=== PATIENT | male | born 1970 | race Caucasian/White ===

== ENCOUNTER 2021-06-25 02:19 | Day surgery (SDC) | payer OTHER, SELFPAY ==
[2021-06-08 12:41] VITALS: BMI 38.8
[2021-06-25 06:50] VITALS: BP 122/79; PULSE 57; RESP 18; TEMP 36.1; O2SAT 98; BMI 38.7
[2021-06-25] MEDS: LACTATED RINGERS 1,000 ML 150 ML IV CONT (06:53)
--- NOTE | 2021-06-25 07:21 | PM.HPGS ---
History of Present Illness History of Present Illness Consent: Risks, benefits, and alternatives have been discussed and questions answered. Patient agrees to proceed with procedure. Chief complaint: neoplasm screening Narrative: Easton Matamoros is a 50 year old male referred for colon cancer screening Review of Systems Review of Systems: All systems reviewed & are unremarkable except as noted in HPI and below PMFSH Past Medical History Medical History GERD (gastroesophageal reflux disease) Pulse irregularity Family History Family History Father Lung cancer Diabetes mellitus Cerebrovascular accident Mother Heart disease Diabetes mellitus Social History Social History Years smoked: 2 Smoking status: Never smoker Tobacco type: cigarettes Second hand tobacco smoke exposure: No Alcohol intake: current Drinks per week: 2 Substance use: never Substance use type: does not use Living arrangements: with family Gender identity (if verbalized by the patient): Male Sexual Orientation (if Verbalized by the Patient): Straight or Heterosexual Spiritual care concerns: No Meds Home Medications and Allergies Home Medications Medication Instructions Recorded Confirmed Type aspirin 81 mg tablet,delayed 81 mg PO DAILY 05/06/21 06/25/21 History release magnesium oxide 400 mg PO DAILY 05/06/21 06/25/21 History metoprolol succinate 50 mg 50 mg PO DAILY 05/06/21 06/25/21 History tablet,extended release 24 hr multivit with minerals-folic 1 tablet PO DAILY 05/06/21 06/25/21 History acid-lycopene 0.4 mg-600 mcg tablet omega-3 fatty acids 1,000 mg 1,000 mg PO DAILY 05/06/21 06/25/21 History capsule Allergies Allergy/AdvReac Type Severity Reaction Status Date / Time No Known Allergies Allergy Verified 06/25/21 06:49 Vital Signs Vital Signs - 24 hr 06/25/21 06:50 Temperature 36.1 C L Pulse Rate 57 L Respiratory Rate 18 Blood Pressure 122/79 Pulse Oximetry 98 Exam Resp: Auscultation: clear to auscultation bilaterally Cardio: Rate: regular rate Rhythm: regular rhythm GI: GI Palp: Yes Soft to palpation and No Tenderness to palpation present (GI) Assessment and Plan Assessment and plan (1) Colon cancer screening: Code(s): Z12.11 - Encounter for screening for malignant neoplasm of colon Status: Acute Assessment and Plan: Colonoscopy with possible biopsy or polypectomy or cautery or injection of substances.
--- NOTE | 2021-06-25 07:38 | WPDANESEPPF ---
Anes - Initial Pre Proc Eval Procedure: Operation Date: 06/25/21 08:00 Proposed Procedures p Screening Colonoscopy - Tigre Herrera MD Date/Time: 06/25/21 07:38 Surgeon: Tigre Herrera MD Pre Op Diagnosis: neoplasm screening Patient Data Age: 50 Gender: M Height: 1.78 m Weight: 122.5 kg Last Vital Signs Temp 36.1 C L 06/25/21 06:50 Pulse 57 L 06/25/21 06:50 Resp 18 06/25/21 06:50 BP 122/79 06/25/21 06:50 Pulse Ox 98 06/25/21 06:50 Allergies Allergy/AdvReac Type Severity Reaction Status Date / Time No Known Allergies Allergy Verified 06/25/21 06:49 Home Medications Medication Instructions Recorded Confirmed Type aspirin 81 mg tablet,delayed 81 mg PO DAILY 05/06/21 06/25/21 History release magnesium oxide 400 mg PO DAILY 05/06/21 06/25/21 History metoprolol succinate 50 mg 50 mg PO DAILY 05/06/21 06/25/21 History tablet,extended release 24 hr multivit with minerals-folic 1 tablet PO DAILY 05/06/21 06/25/21 History acid-lycopene 0.4 mg-600 mcg tablet omega-3 fatty acids 1,000 mg 1,000 mg PO DAILY 05/06/21 06/25/21 History capsule Patient hx anesthesia problems: none Family hx anesthesia problems: none Results Review: All pre-operative results and documents have been reviewed as part of the pre-operative evaluation. [facility] Past Medical History Medical History (Updated 06/25/21 @ 07:39 by Rocky Edwards MD) GERD (gastroesophageal reflux disease) Obesity EMERITA (obstructive sleep apnea) Pulse irregularity Family History Family History Father Lung cancer Diabetes mellitus Cerebrovascular accident Mother Heart disease Diabetes mellitus Social History Social History Years smoked: 2 Smoking status: Never smoker Tobacco type: cigarettes Second hand tobacco smoke exposure: No Alcohol intake: current Drinks per week: 2 Substance use: never Substance use type: does not use Living arrangements: with family Gender identity (if verbalized by the patient): Male Sexual Orientation (if Verbalized by the Patient): Straight or Heterosexual Spiritual care concerns: No Anes - Eval Final PreProcedure Day of Procedure 06/25/21 07:38 Patient weight: obese Heart: regular rate and rhythm Lungs: clear to auscultation Airway: Mallampati scale class II Neurological: alert and oriented Last oral intake: >/= 8 hours ASA classification: III Emergent: no Anesthetic plan: proceed Anesthesia type and monitoring: general GIVS and standard monitoring Results Review: All pre-operative results and documents have been reviewed as part of the pre-operative evaluation. Informed Consent: The patient's anesthetic plan and its attendant risks and benefits were discussed with the patient/family/POA. Questions were solicited and answers provided to the satisfaction of the patient/family/POA.
[2021-06-25 08:14] VITALS: BP 94/59; PULSE 68; RESP 24; O2SAT 95
[2021-06-25 08:24] VITALS: BP 114/84; PULSE 65; RESP 21; O2SAT 96
[2021-06-25 08:34] VITALS: BP 123/84; PULSE 72; RESP 24; O2SAT 98
== END 2021-06-25 08:43 | disposition home or self-care (01) ==
PROVIDERS: PCP Family Medicine; Visit Provider Internal Medicine Gastroenterology
PROC: 0DJD8ZZ Inspection of Lower Intestinal Tract, Via Natural or Artificial Opening Endoscopic (ICD-10-PCS; CPT 45378; principal; 2021-06-25 08:00)
DX: Z12.11 Encounter for screening for malignant neoplasm of colon (principal); K21.9 Gastro-esophageal reflux disease without esophagitis; G47.33 Obstructive sleep apnea (adult) (pediatric); E66.9 Obesity, unspecified; Z68.38 Body mass index [BMI] 38.0-38.9, adult; Z79.82 Long term (current) use of aspirin
CPT/HCPCS: 45378; J2704; J7120

== ENCOUNTER → 2023-02-11 10:24 | Outpatient (CLI) | payer OTHER, SELFPAY ==
--- NOTE | ~2023-02-11 | XR_ITS ---
XR shoulder LT min 2V DATE: 02/11/2023 10:51 INDICATION: Left shoulder pain radiating to biceps muscle for 4 to 5 months TECHNIQUE: 4 views COMPARISON: None FINDINGS: No fracture or dislocation, periosteal reaction or bone destruction or abnormal soft tissue calcification. IMPRESSION: Negative Reviewed, dictated and finalized at location [] IMPRESSION: Negative
== END ==
PROVIDERS: PCP Family Medicine; Visit Provider Family Medicine
DX: M25.512 Pain in left shoulder (principal)
CPT/HCPCS: 73030

== ENCOUNTER 2023-12-26 14:57 | Emergency (ER) | payer OTHER, SELFPAY ==
[2023-12-26 15:11] VITALS: BP 149/75; PULSE 57; RESP 16; TEMP 36.6; O2SAT 100
--- NOTE | 2023-12-26 15:36 | ED.MALEGU ---
HPI - Male Genitourinary General Chief complaint: Urogenital-Male Stated complaint: Large Testicle Time Seen by Provider: 12/26/23 15:36 Source: patient, RN notes reviewed and old records reviewed Mode of arrival: ambulatory Limitations: no limitations History of Present Illness HPI Narrative: 53-year-old male presents to the [facility] with right in large to and uncomfortable right testicle. Noticed it over the weekend. States that he tried calling his primary care provider was referred to the emergency room or urgent care. Reports that he is not sure how long it has been enlarged. Denies fevers Denies chances of STDs Related Data Home Medications Medication Instructions Recorded Confirmed aspirin 81 mg tablet,delayed 81 mg PO DAILY 05/06/21 12/26/23 release magnesium oxide 400 mg PO DAILY 05/06/21 12/26/23 metoprolol succinate 50 mg 50 mg PO DAILY 05/06/21 12/26/23 tablet,extended release 24 hr multivit with minerals-folic 1 tablet PO DAILY 05/06/21 12/26/23 acid-lycopene 0.4 mg-600 mcg tablet (Men's Daily Multivitamin-Mineral) omega-3 fatty acids 1,000 mg 1,000 mg PO DAILY 05/06/21 12/26/23 capsule (Fish Oil Concentrate) pantoprazole 40 mg tablet,delayed 40 mg PO QAM 01/19/23 12/26/23 release rosuvastatin 40 mg tablet 40 mg PO DAILY 01/19/23 12/26/23 Allergies Allergy/AdvReac Type Severity Reaction Status Date / Time No Known Allergies Allergy Verified 12/26/23 15:00 Review of Systems Review of Systems: All systems reviewed & are unremarkable except as noted in HPI and below Constitutional: Constitutional: Reports no additional constitutional complaints Eyes: Eyes: Reports no additional eye complaints ENT: Reports system reviewed and no additional complaints, except as documented Cardiovascular: Cardiovascular: Reports no additional cardiovascular complaints, Denies chest pain and Denies dyspnea Respiratory: Respiratory: Reports no additional respiratory complaints, Denies chest congestion, Denies cough and Denies dyspnea Gastrointestinal: Gastrointestinal: Reports no additional gastrointestinal complaints, Denies abdominal pain, Denies nausea and Denies vomiting Genitourinary: Genitourinary: Reports as per HPI and Reports scrotal swelling (Right) Musculoskeletal: Musculoskeletal: Reports no additional musculoskeletal complaints Integumentary/Breasts: Skin/Breast: Reports system reviewed and no additional complaints, except as docu Neurologic: Reports system reviewed and no additional complaints, except as documented Psychiatric: Psychiatric: Reports no additional psychiatric complaints Allergic/Immunologic: Allergic/Immunologic: Reports no additional allergic/immunologic complaints PMF Past Medical History Medical History Frequent PVCs GERD (gastroesophageal reflux disease) Obesity EMERITA (obstructive sleep apnea) Pulse irregularity Family History Family History Father Lung cancer Diabetes mellitus Cerebrovascular accident Mother Heart disease Diabetes mellitus Social History Social History Years smoked: 2 Smoking status: Never smoker Tobacco type: cigarettes Second hand tobacco smoke exposure: No Alcohol intake: current Drinks per week: 2 Substance use: never Substance use type: does not use Living arrangements: with family Occupation/Education: occupation Gender identity (if verbalized by the patient): Male Sexual Orientation (if Verbalized by the Patient): Straight or Heterosexual Spiritual care concerns: No Comments At the time of my signature, I reviewed and agree with the nursing past medical, surgical, social, and family history. There is no relevant family history pertinent to the patient complaint. Exam Const: General: cooperative, healthy appearing, comforta
== END 2023-12-26 15:43 | disposition short-term general hospital (02) ==
PROVIDERS: Emergency Provider Nurse Practitioner; PCP Family Medicine
DX: N50.89 Other specified disorders of the male genital organs (principal); K21.9 Gastro-esophageal reflux disease without esophagitis; E66.9 Obesity, unspecified; Z68.42 Body mass index [BMI] 45.0-49.9, adult; Z79.82 Long term (current) use of aspirin
CPT/HCPCS: 99212; G0463

== ENCOUNTER 2023-12-26 16:09 | Emergency (ER) | payer OTHER, SELFPAY ==
--- NOTE | ~2023-12-26 | US_ITS ---
EXAMINATION: US scrotum doppler DATE: 12/26/2023 17:20 INDICATION: swollen testicle . TECHNIQUE: Grayscale and Doppler ultrasound images of the testes were obtained. COMPARISON: None. FINDINGS: The right testis measures 4.9 x 3.1 x 3.1 cm. The left testis measures 5.1 x 3.0 x 2.8 cm. No testicular mass. There is normal vascular flow to both testes. The right epididymis is normal with normal vascular flow. The left epididymis is normal with normal vascular flow. Large right and trace left hydroceles. IMPRESSION: Large right and trace left hydroceles. Reviewed, dictated and finalized at location K.
[2023-12-26 16:12] VITALS: BP 160/95; PULSE 50; RESP 18; TEMP 36.7; O2SAT 98
--- NOTE | 2023-12-26 16:50 | ED.GENADULT ---
HPI - General Adult General Chief complaint: Urogenital-Male <Rafia Barton, APPLICATION SPECIALIST - Last Filed: 12/26/23 16:53> Stated complaint: Swollen R testicle <Rafia Knox January, APPLICATION SPECIALIST - Last Filed: 12/26/23 16:53> Time Seen by Provider: 12/26/23 16:50 <Rafia Knox January, APPLICATION SPECIALIST - Last Filed: 12/26/23 16:53> Focused HPI: Easton Matamoros is a 53 y/o male who presents today with reports of having swelling and discomfort to the right testicle that started 1-2 days ago he thinks. Denies any urinary symptoms no dysuria / denies any fever chills denies abdominal pain/ He states that when he was trying to feel for lumps he felt a little lower pelvic pressure. GENERAL: Well-appearing, well-nourished, and in no acute distress. HEAD: Normocephalic, atraumatic. CHEST: Clear to auscultation. ?No respiratory distress. HEART: Regular rate and rhythm.? NEURO: ?Alert and oriented x3. Patient screened in triage and initial orders placed.? ?Additional care and disposition to be based upon?diagnostic testing and treatment. <Rafia Knox January, APPLICATION SPECIALIST - Last Filed: 12/26/23 16:53> Related Data Home medications: Home Medications Medication Instructions Recorded Confirmed aspirin 81 mg tablet,delayed 81 mg PO DAILY 05/06/21 12/26/23 release magnesium oxide 400 mg PO DAILY 05/06/21 12/26/23 metoprolol succinate 50 mg 50 mg PO DAILY 05/06/21 12/26/23 tablet,extended release 24 hr multivit with minerals-folic 1 tablet PO DAILY 05/06/21 12/26/23 acid-lycopene 0.4 mg-600 mcg tablet (Men's Daily Multivitamin-Mineral) omega-3 fatty acids 1,000 mg 1,000 mg PO DAILY 05/06/21 12/26/23 capsule (Fish Oil Concentrate) pantoprazole 40 mg tablet,delayed 40 mg PO QAM 01/19/23 12/26/23 release rosuvastatin 40 mg tablet 40 mg PO DAILY 01/19/23 12/26/23 <Rafia Barton, APPLICATION SPECIALIST - Last Filed: 12/26/23 16:53> Allergies/adverse reactions: Allergies Allergy/AdvReac Type Severity Reaction Status Date / Time No Known Allergies Allergy Verified 12/26/23 16:10 <Rafia Barton - Last Filed: 12/26/23 16:53> Review of Systems Review of Systems: CONSTITUTIONAL: Denies fever GASTROINTESTINAL: Denies abdominal pain, nausea, vomiting GENITOURINARY: Denies dysuria <Desirae Glover PA-C - Last Filed: 12/26/23 22:26> All systems reviewed & are unremarkable except as noted in HPI and below <Desirae Glover PA-C - Last Filed: 12/26/23 22:26> PMFSH Past Medical History Medical History: Medical History Frequent PVCs GERD (gastroesophageal reflux disease) Obesity EMERITA (obstructive sleep apnea) Pulse irregularity <Rafia Barton - Last Filed: 12/26/23 16:53> Family History Family History: Family History Father Lung cancer Diabetes mellitus Cerebrovascular accident Mother Heart disease Diabetes mellitus <Rafia Barton APPLICATION SPECIALIST - Last Filed: 12/26/23 16:53> Social History Social History: Social History Years smoked: 2 Smoking status: Never smoker Tobacco type: cigarettes Second hand tobacco smoke exposure: No Alcohol intake: current Drinks per week: 2 Substance use: never Substance use type: does not use Living arrangements: with family Occupation/Education: occupation Gender identity (if verbalized by the patient): Male Sexual Orientation (if Verbalized by the Patient): Straight or Heterosexual Spiritual care concerns: No <Rafia Barton APPLICATION SPECIALIST - Last Filed: 12/26/23 16:53> Exam Narrative: GENERAL: Well-appearing, well-nourished, and in no acute distress. HEAD: Normocephalic, atraumatic. EYES: EOMI. CHEST: No respiratory distress. HEART: Regular rate EXTREMITIES: Normal range of motion. No edema. SKIN: Warm, dry, no rash. NEURO: No focal deficits. Alert and oriented x3. PSYCH: Normal mood and affect MALE GENIT
[2023-12-26 20:10] LABS: Appearance Urine Clear (Clear); Bilirubin Urine Negative (Negative); Blood Urine Negative (Negative); Color Urine Yellow (Yellow); Glucose Urine UA Negative (Negative); Ketones Urine Negative (Negative); Leukocyte Esterase Ur Negative LEU/UL (Negative); Nitrate Urine Negative (Negative); Protein Urine Negative (Negative); Specific Grav Ur 1.014 (1.001-1.035); Urobilinogen Urine 0.2 mg/dL (<2.0); pH Urine 6.5 (5.0-9.0)
[2023-12-26 20:12] LABS: Add Urine Microscopic? NO
[2023-12-26 20:17] LABS: Alanine Aminotransferase 34 U/L (6-50); Albumin Level 4.6 g/dL (3.5-5.1); Alkaline Phosphatase 90 U/L (38-126); Anion Gap 8 mmol/L (4-12); Aspartate Amino Transferase 33 U/L (17-59); Bilirubin,Total 0.7 mg/dL (0.2-1.3); Blood Urea Nitrogen 12 mg/dL (9-20); Calcium 9.2 mg/dL (8.4-10.2); Carbon Dioxide 22 mmol/L (22-30); Chloride 110 mmol/L (98-107); Estimated CRCL calculation 145 ml/min; Estimated Glomerular Filt Rate > 60; Glucose 86 mg/dL (65-110); Potassium 4.2 mmol/L (3.4-5.0); Sodium 140 mmol/L (137-145)
[2023-12-26 22:00] LABS: Basophils Absolute Auto 0.1 K/mm3 (0.0-0.1); Basophils Percent Auto 0.7 % (0.2-1.2); Eosinophils Absolute Auto 0.1 K/mm3 (0-0.3); Eosinophils Percent Auto 1.6 % (0-4.4); Hematocrit 44.5 % (42.0-52.0); Immature Granulocyte Absolute 0.01 K/mm3 (0.00-0.031); Immature Granulocyte Percent A 0.1 % (0-0.5); Lymphocytes Absolute Auto 2.03 K/mm3 (0.9-3.2); Lymphocytes Percent Auto 27.2 % (18.3-44.2); Mean Corpuscular HGB Conc 33.7 g/dl (32-36); Mean Corpuscular Hemoglobin 29.7 pg (26-34); Mean Corpuscular Volume 88.1 fl (80-100); Mean Platelet Volume 10.9 fl (7.4-10.4); Monocytes Absolute Auto 0.7 K/mm3 (0.1-0.6); Monocytes Percent Auto 8.7 % (2.6-8.5); Neutrophils Absolute Auto 4.6 K/mm3 (1.3-6.7); Neutrophils Percent Auto 61.7 % (45.5-73.1); Platelet Count Result 202 k/mm3 (150-375); Red Blood Count 5.05 M/mm3 (4.6-6.20); White Blood Count 7.5 K/mm3 (4.5-10.0)
[2023-12-26 22:31] VITALS: BP 142/68; PULSE 64; RESP 15; O2SAT 100
== END 2023-12-26 22:31 | disposition home or self-care (01) ==
PROVIDERS: Nurse Practitioner Family; Emergency Provider Physician Assistant; PCP Family Medicine
DX: N43.3 Hydrocele, unspecified (principal); K21.9 Gastro-esophageal reflux disease without esophagitis; G47.33 Obstructive sleep apnea (adult) (pediatric); E66.9 Obesity, unspecified; Z68.41 Body mass index [BMI] 40.0-44.9, adult; Z79.82 Long term (current) use of aspirin
CPT/HCPCS: 36415; 76870; 80053; 81003; 85025; 93976; 99284

== ENCOUNTER 2024-05-01 16:17 | Outpatient (CLI) | payer OTHER, SELFPAY ==
[2024-05-01 17:21] LABS: SARS-CoV-2 RNA PCR Positive (Negative)
== END 2024-05-01 16:18 | disposition home or self-care (01) ==
LOC: ANHLAB 16:19
PROVIDERS: PCP Family Medicine; Visit Provider Family Medicine
DX: U07.1 COVID-19 (principal); R05.9 Cough, unspecified; R51.9 Headache, unspecified
CPT/HCPCS: 87635